=== PATIENT | male | born 1955 ===

== ENCOUNTER 2024-11-19 07:05 | Day surgery (SDC) | payer OTHER ==
[2024-11-15 16:12] LABS: Anion Gap 6.7 mEq/L (5.0-15.0); Potassium 3.7 mEq/L (3.5-5.1)
[2024-11-15 16:13] LABS: Absolute Basophils 0.1 K/uL (0-0.5); Absolute Lymphocytes (CBC) 1.2 K/uL (0.7-4.9); Absolute Monocytes 0.9 K/uL (0.1-1.3); Absolute Neutrophil 6.1 K/uL (1.8-8.0); Eosinophils % 0.6 % (0-4.4); Hematocrit 41.3 % (39.6-49.0); Hemoglobin 14.4 g/dL (13.6-17.9); Lymphocytes % 14.7 % (15.3-44.8); MCH 33.5 pg (27.0-35.0); MCHC 34.8 g/dL (32.0-36.0); MCV 96.1 fL (80-100); MPV 8.8 fL (7.6-11.3); Monocytes % 11.1 % (3.3-12.3); Neutrophils % 72.6 % (41.7-73.7); Nucleated Red Blood Cells % 0.1 % (0-0); Platelets 239 thou/uL (152-406); RBC Red Blood Cell Count 4.29 M/uL (4.33-5.43); Red Cell Distribution Width 12.2 % (12.1-15.2)
--- NOTE | 2024-11-15 16:15 | RAD REPORT ---
EXAMINATION: TWO VIEW CHEST XR CLINICAL INDICATION: Pre-op pending heart catheterization TECHNIQUE: 2 views of the chest was performed. COMPARISON: No prior exam. FINDINGS: The lungs are well inflated and clear. The heart is normal in size. No displaced fractures evident. IMPRESSION: No acute or significant abnormalities.
[2024-11-15 16:17] LABS: PT Prothrombin Time 11.1 SECONDS (9.4-12.5); PTT, Activated Partial Thromb 32.1 SECONDS (24.3-36.9); Protime INR 0.99
--- NOTE | 2024-11-16 13:37 | EKG ---
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
[2024-11-19] MEDS ORDERED: NA CHLORIDE 0.9% 500 ML ONE (07:11)
[2024-11-19] MEDS ORDERED: NITROGLYCERIN/D5W 50 MG/250 ML BTL IV ONE (07:17)
[2024-11-19] MEDS ORDERED: HEPARIN 10,000 UNIT/10 ML VIAL IV ONE (07:17)
[2024-11-19] MEDS ORDERED: HEPA 1000U/500MLS 2,000 UNIT/1,000 ML BAG IV ONE (07:17)
[2024-11-19] MEDS ORDERED: CLOPIDOGREL 75 MG TABLET ONE (07:18)
[2024-11-19] MEDS ORDERED: HEPARIN 5000 UNIT/ML 1 ML VIAL ONE (07:18)
[2024-11-19] MEDS ORDERED: TICAGRELOR 90 MG TABLET PO ONE (07:18)
[2024-11-19] MEDS ORDERED: LIDOCAINE 1% 20 ML MDV ONE (07:18)
[2024-11-19] MEDS ORDERED: FENTANYL CITR 100 MCG/2 ML ONE (07:19)
[2024-11-19] MEDS ORDERED: MIDAZOLAM HCL 2 MG/2 ML INJ ONE (07:20)
[2024-11-19] MEDS ORDERED: ATROPINE SULF 1 MG/10 ML SYR IV ONE (07:20)
[2024-11-19] MEDS ORDERED: ASPIRIN 325 MG TAB ONE (07:20)
--- NOTE | 2024-11-19 11:52 | OP ---
Date of Procedure: 11/19/2024 Surgeon: Hal Oliver Procedures Performed: 1.Selective coronary angiogram. 2.PCI of the LAD with Synergy 3.0 x 48 mm drug-eluting stent overlapped with 2.5 x 16 mm drug-elutin g stent. Indication For Procedure: Unstable angina. Abnormal stress test. Complications: None. Estimated Blood Loss: Less than 50 cc. Access: Right radial, closed by TR band. Sedation Time: 40 minutes with 1 of Versed and 50 of fentanyl. Description Of Procedure: After risks, and benefits, and alternatives were explained to the patient, patient agreed to proceed with procedure and signed informed consent. The patient was brought back to the clinical laboratory aide, prepped and draped in sterile fashion. Time-out was performed. Sedation was admini stered. Next, with the right radial access using ultrasound-guided micropuncture technique, [place] 4. 0 catheter was advanced over a J-wire to the aortic root. Selective angiogram was done using this ca theter. That catheter was later exchanged over a J-wire with an XB LAD 3.5 mm guide. Heparin was ad ministered. ACT was therapeutic. Next, a Runthrough wire was passed across the lesion, pre-dilated the proximal to mid LAD with an NC 2.5 and 3.0 mm balloon. Next, Synergy 3.0 x 48 mm drug-eluting st ent was placed across the proximal into mid LAD. That was later on postdilated with 3.5 x 12 mm NC b alloon. Repeat angiogram shows distal edge of the stent with still significant disease. So another Synergy 2.5 x 16 mm drug-eluting stent was placed to the mid LAD overlapped with the first stent and that is postdilated with a 3.0 NC balloon. Final angiogram shows ROBERT-3 flow. Wire was removed. Ca theter was removed over a J-wire. Sheath was removed. TR band was applied. Hemostasis was achieved and the patient was moved back to Recovery in stable condition. Findings: 1.Left main normal. 2.LAD; very tortuous, with moderate calcification with a proximal to mid 90% to 95% disease and then mid diffuse 70% disease. PCI done as above, distal diffuse mild luminal irregularities. 3.Left circ; mild luminal irregularities, gives a large OM1 and got mild luminal regularities. 4.RCA; proximal 40% disease with distal 50% to 60% disease before trifurcations into RPDA and RPLB. Assessment And Plan: 1.Significant proximal to mid LAD disease, status post PCI with Synergy 3.0 x 48, overlapped with Sy nergy 2.5 x 16 mm drug-eluting stent. 2.Moderate mid to distal LAD disease, medical management for that at this time. Plan: 1.Aspirin 81 mg daily for life. 2.Brilinta 180 x1 was given in the clinical laboratory aide, continue Brilinta 90 mg p.o. b.i.d. for 12 months. 3.Continue aggressive medical treatment for CAD. JAVIER/SHELDON Voice ID: [id number] Report ID: [id number]
[2024-11-19 12:00] VITALS: BP 135/62; O2SAT 95
== END 2024-11-19 12:10 | disposition home or self-care (01) ==
LOC: CCL 07:05
PROVIDERS: ATTEND Internal Medicine Interventional Cardiology
DX: I25.110 Atherosclerotic heart disease of native coronary artery with unstable angina pectoris (principal); R00.2 Palpitations; I10 Essential (primary) hypertension; E11.9 Type 2 diabetes mellitus without complications; Z82.49 Family history of ischemic heart disease and other diseases of the circulatory system
CPT/HCPCS: 93005; 85025; 80048; 36415; 85610; 82947; 85347 ×3; 85730; 71046; 93454; 76937; C1893; Q9967; C1725; C1877; C9600; J1644; J2003; J2250; J3010; J7040; 99152; 99153; J0461